=== PATIENT | female | born 1975 | race Caucasian/White ===

== ENCOUNTER 2022-08-22 11:26 | Outpatient (CLI) | payer BC, SELFPAY ==
--- NOTE | 2022-08-22 11:30 | CRLHL7_ITS ---
For Patients: As a result of the Century Cures Act, medical imaging exams and procedure reports are released immediately into your electronic medical record. You may view this report before your referring provider. If you have questions, please contact your health care provider. BILATERAL SCREENING MAMMOGRAM WITH COMPUTER-AIDED DETECTION TECHNIQUE: CC and MLO views were obtained. These mammographic images have been obtained using full-field digital technique. These mammographic images were interpreted with the benefit of computer-aided detection. COMPARISON FILM: 08/07/21, 05/25/20, 06/04/18. . FINDINGS: There are scattered areas of fibroglandular density IMPRESSION: There is no radiographic evidence for malignancy. ASSESSMENT: BI-RADS Category 1: Negative RECOMMENDATION: Routine screening mammogram in 1 year. A lay language report of this examination will be provided to the patient. Rojas Love M.D. Diagnostic Radiologist [email or web address] Transcribed: 2:07 pm DW/Dictated by: Rojas Love MD @ 08/23/2022 8:21:00 AM (Electronically Signed)
== END 2022-08-22 11:27 | disposition home or self-care (01) ==
PROVIDERS: PCP Family Medicine; Visit Provider Registered Nurse
DX: Z12.31 Encounter for screening mammogram for malignant neoplasm of breast (principal)
CPT/HCPCS: 77063; 77067

== ENCOUNTER 2022-09-02 11:00 | Outpatient (RCR) | payer OTHER, BC, SELFPAY | END 2023-04-03 23:59 | disposition home or self-care (01) | PROVIDERS: PCP Family Medicine; Visit Provider Family Medicine | DX: M77.01 Medial epicondylitis, right elbow (principal); Z51.89 Encounter for other specified aftercare | CPT/HCPCS: 97033; 97035; 97110; 97140; 97535; X5282 ==

== ENCOUNTER 2024-10-31 23:05 | Emergency (ER) | payer OTHER, SELFPAY ==
--- OUTSIDE RECORDS SUMMARY | 2024-10-31 23:08 | XMS_ITS | Clinical Summary ---
Author Organization [facility] Address [place], [place] [address] Care Team Providers Care Surgical Lead Name Role Phone Ching Reeder Primary Care Provider [phone] Allergies No known active allergies Medications ABDULLAHI 180 MG TABIndications:A llergic rhinitis, cause unspecified one PO daily PRN allergies 30 11 9 Active ferrous sulfate, 65 mg elemental, tabletIndication s:Iron deficiency anemia, unspecified iron deficiency anemia type Take 1 Tablet (325 mg) by mouth once daily with a meal. 90 Tablet 3 3 Active blood sugar diagnostic (OneTouch Verio test strips) stripIndications :Type 2 diabetes mellitus without complication, without long-term current use of insulin (HC) E11.9 NIDDM type II - Test 3 times/day, Reason: New diabetes 100 Each 5 3 Active lancets 33 gauge miscIndications: Type 2 diabetes mellitus without complication, without long-term current use of insulin (HC) As directed. Test 3 times daily 100 Each 3 3 Active cholecalciferol (VITAMIN D3) 50,000 unit capsuleIndicatio ns:Vitamin D deficiency Take 1 Capsule (50,000 units) by mouth once weekly. 8 Capsule 3 Active Active Problems Problem Noted Date Diagnosed Date Pap smear for cervical cancer screening 07/09/20 24 Overview (07/09/2024): 06/2024 NIL/HPV negative. Plan: Pap/HPV due 06/2029. Vitamin D deficiency 01/01/2023 Mixed hyperlipidemia 01/01/2023 Type 2 diabetes mellitus wit hout complication, without long-term current use of insulin 01/01/2023 Resolved Problems Problem Noted Date Diagnosed Date Resolved Date Positive PPD 02/21/2014 02/21/2014 Overview (02/21/2014): neg chest xray Waiting for PPD records Immunizations Name Administration Dates Next Due AMB Influenza, IIV4 PF (=>6 mos Flulaval,Fluzone Fluarix)(Flu Clinic Only) 06/06/2014 COVID-19 VACCINE SPIKEVAX (M ODERNA 50MCG/0.5ML) 12YO+ PFS 07/05/2024 COVID-19 vaccine (Moderna 100mcg/0.5mL) PF, MDV 11/13/2020 COVID-19 vaccine (Pfizer-Bio NTech 30mcg/0.3mL) 12YO+ BIVALENT PF, MDV 07/19/2022 COVID-19 vaccine (Pfizer-Bio NTech 30mcg/0.3mL) PF, MDV 12/19/2020,11/13/2020 Hep B (Hepatitis B (Adult) Recombinant Adjuvanted) 06/17/2024 INFLUENZA, IIV3 PF (AGE >= 6 MO) 07/05/2024 Influenza A (H1N1), Inactivated 08/31/2009 Influenza, IIV3 (Age >=3 years) 08/12/2007,08/02,09/13/2003 Influenza, IIV4 07/04/2021, 0,08/21/2018,2008 Influenza, IIV4 (=>6mos) MDV 07/16/2022 Td, Preservative Free (age > = 7 Years) 03/16/2018 Tdap 03/04/2018,08/12/2007 Family History Medical History Relation Name Comments Diabetes Brother 1 No Known Problems Brother 2 Hyperlipidemia Father Diabetes Maternal Grandfather Diabetes Maternal Grandmother Diabetes Mother Cancer-breast No Family History Relation Name Status Comments Brother 1 Alive Brother 2 Alive Father Maternal Grandfather Maternal Grandmother Mother Social History Tobacco Use Types Packs/Day Years Used Date Smoking Tobacco: Never Passive Smoke Exposure: Never Smokeless Tobacco: Never Tobacco Cessation:Counseling Given: Not Answered Alcohol Use Standard Drinks/Week Comments Yes 0 (1 standard drink = 0.6 oz pur e alcohol) rare PHQ-2 Answer Date Recorded PHQ-2 TOTAL SCORE 1 09/17/2022 Social Connections Answer Date Recorded Do you often feel lonely or isolated from those around you? 0 06/14/2024 Financial Resource Strain Answer Date R ecorded Difficulty of Paying Living Expenses 2 06/14/2024 Difficulty of Paying Living Expenses 1 06/14/2024 Food Insecurity Answer Date Recorded Do you worry your food will run out before you are able to buy more? 1 06/14/2024 Transportation Needs Answer Date Record ed Does lack of transportation keep you from medica l appointments? 1 06/14/2024 Does lack of transportation keep you from work, meetings or getting things that you need? 1 06/14/2024 Housing Stability Answer Date Recorded What is your housing situation today? 1 06/14/2024 Utilities Answer Date Recorded Do you have trouble paying f or utilities (for example, heat, electricity, water, phone)? 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 Not on file Not on file Not on file Obstetrics History Last Filed Vital Signs Vital Sign Reading Time Taken Comments Blood Pressure 118/72 07/05/2024 9:53 AM CDT Pulse 68 07/05/2024 9:53 AM CDT Temperature 37.4 C (99.4 F) 06/14/2024 10:35 AM CDT Respiratory Rate 16 07/05/2024 9:53 AM CDT Oxygen Saturation 99% 07/05/2024 9:53 AM CDT Inhaled Oxygen Concentration - - Weight 73.3 kg (161 lb 8 oz) 07/05/2024 9:53 AM CDT Height 153.1 cm (5' 0.28) 07/05/2024 9:53 AM CD T Body Mass Index 31.25 07/05/2024 9:53 AM CDT Plan of Treatment Health Maintenance Due Date Last Done Comments Pneumococcal series for age 6-49 (1 of 2 - PCV) 1979 Pneumococcal series for age 50+ (1 of 2 - PCV) 02/01/1992 Colonoscopy through age 75 2018 Zoster (shingles) series for age 50+ (1 of 2) 2023 Depression screening for age 12+ 09/17/2023 09/17/19 Hepatitis B series for Diabe greg (2 of 2 - CpG 2-dose series) 07/15/2024 06/17/2024 BMI (ht and wt on same day) for age 18+ 07/05/2025 07/05/2024, 12/06/2022, 09/25/2022, Additional history exists Mammogram for age 45-75 07/13/2025 07/13/20, 08/22/2022, 08/22/2022 (Completed outside of [facility]), Additional history exists Lipids for age 45-75 12/20/2027 12/19/2022, 09/17/19 Tetanus booster 03/16/2028 03/16/2018, 02/14, 08/12/2007 Pap test for age 21-65 07/05/2029 , 01/25/2019, 01/25/2019, Additional history exists Tdap Completed 03/04/2018, 08/12/2007 HIV for age 15-65 Completed 12/06/2022, 03/04/2018 Hepatitis C screening for ag e 18-79 Completed 12/06/2022, 03/04/2018 COVID-19 vaccine series Completed 07/05/20, 07/19/2022, 08/23/2021, Additional history exists Influenza for age 50-64 Completed 07/05/20, 07/16/2022, 07/04/2021, Additional history exists Procedures Procedure Name Priority Date/Time Associated Diagnosis Comments XR MAMMO BILAT SCREENING Routine 07/13/2024 1:44 PM CDT Visit for screening mammogram FIELD ACCOUNT MANAGER THIN PREP PAP AND HPV DNA - AGE 25 AND OVER ([facility]) Routine 07/05/2024 10:13 AM CDT Pap smear for cervical cancer screening LC LIPID PANEL AND CHOL/HDL RATIO Routine 12/19/2022 8:22 AM CDT Mixed hyperlipidemia LC HIV-1/O/2, 4TH GENERATION Routine 12/06/2022 3:44 PM CDT Screen for STD (sexually transmitted disease) LC HCV ANTIBODY RFX TO QUANT PCR Routine 12/06/2022 3:44 PM CDT Screen for STD (sexually transmitted disease) from Last 3 Months or Most Recently Relevant to Health Maintenance Results * XR MAMMO BILAT SCREENING (07/13/2024 1:44 PM CDT) Anatomical Region Laterality Modality BREASTS, Breast Left, Breast Right Bilateral Mammography Impressions 07/14/2024 3:45 PM CDT There is no radiographic evidence for malignancy. Recommend annual mammograms. MAMMOGRAM ASSESSMENT: ACR 1 Negative PATIENTS: You will also receive a letter with your examination results in an easy to read format. If you have questions about your results, please contact your referring provider. Narrative 07/14/2024 3:45 PM CDT For Patients: As a result of the Century Cures Act, medical imaging exams and procedure reports are released immediately into your electronic medical record. You may view this report before your referring provider. If you have questions, please contact your health care provider. XR MAMMO BILAT SCREENING [[id number]] CLINICAL HISTORY: This is an asymptomatic 49 y.o. patient. INDICATION FOR EXAM: Mammogram Screening. TECHNIQUE: CC & MLO views were obtained. This study was evaluated with the assistance of Computer-Aided Detection. COMPARISON FILM: Yes 08/22/22 Outside Facility 08/07/21 Outside Facility FINDINGS: There are scattered areas of fibroglandular density. There are no dominant masses, suspicious micro calcifications or areas of architectural distortion. us Ching DE LA TORRE MAMMO Final Res ult * FIELD ACCOUNT MANAGER THIN PREP PAP AND HPV DNA - AGE 25 AND OVER (Yhat) (07/05/2024 10:13 AM CDT) CLINICAL INFORMATION [facility] Comment:None given LMP [facility] Comment:NONE GIVEN PREV. PAP [facility] Comment:NONE GIVEN PREV. BX [facility] Comment:NONE GIVEN SOURCE FIELD ACCOUNT MANAGER [facility] Comment:None given STATEMENT OF ADEQUACY [facility] Comment: Satisfactory for evaluation. Endocervical/transformation zone component present. Age and/or menstrual status not provided INTERPRETATION/RESU LT [facility] Comment: Cytology Results: Negative for intraepithelial lesion or malignancy. COMMENT [facility] Comment: This Pap test has been evaluated with computer assisted technology. PRODUCT DESIGN MANAGER [facility] Comment: RRD, CT(ASCP) CT Screening location: [address] [address] THINPREP TIS PAP ALWAYS MESSAGE [facility] Comment: EXPLANATORY NOTE: The Pap is a screening test for cervical cancer. It is not a diagnostic test and is subject to false negative and false positive results. It is most reliable when a satisfactory sample, regularly obtained, is submitted with relevant clinical findings and history, and when the Pap result is evaluated along with historic and current clinical information. HPV HIGH RISK Not Detected NOT DETECTED [facility] Comment: Not Detected High Risk HPV types (16,18,31,33,35,39,45,51,52, 56,58,59,66,68) were not detected. Other HPV types which cause anogenital lesions may be present. The significance of the other types of HPV in malignant processes has not been established. Methodology: Real Time PCR Other (Other) 07/05/2024 10: 13 AM CDT 07/06/2024 8:[address] [facility] - 07/08/2024 7:31 PM CDT FASTING: UNKNOWN us Patricia DE LA TORRE PATHOLOGY/CYTOLOGY Fin al Result [address] [address], [facility] [address] [address] * (ABNORMAL) LC LIPID PANEL AND CHOL/HDL RATIO (12/19/2022 8:22 AM CDT) Cholesterol, Total 217(H) 100 - 199 mg/dL 12/21/2022 8:36 AM CDT [facility] Triglycerides 221(H) 0 - 149 mg/dL 12/21/2022 8:36 AM CDT [facility] HDL Cholesterol 36(L) >39 mg/dL 8:36 AM CDT [facility] VLDL Cholesterol Thomas 40 5 - 40 mg/dL 12/21/2022 8:36 AM CDT [facility] LDL Chol Calc (NIH) 141(H) 0 - 99 mg/dL 12/21/2022 8:36 AM CDT [facility] T. Chol/HDL Ratio 6.0(H) 0.0 - 4.4 ratio 12/21/2022 8:36 AM T [facility] Comment: T. Chol/HDL Ratio Men Women 1/2 Avg.Risk 3.4 3.3 Avg.Risk 5.0 4.4 2X Avg.Risk 9.6 7.1 3X Avg.Risk 23.4 11.0 Blood BLOOD SPECIMEN / Unknown Venipuncture / Unknown 12/19/2022 8:22 AM CDT 12/19/2022 8:23 AM CDT Narrative [facility] - 12/21/2022 8:36 AM CDT Performed at: 01 - [id number] [place], [place] [id number] Manager Of Learning: Landry Ayoub MD, Phone: [phone] us Ching DE LA TORRE SEND OUTS Final Res ult [facility] ([facility] [address] [place] [id number], * LC HCV ANTIBODY RFX TO QUANT PCR (12/06/2022 3:44 PM CDT) [facility] HCV Ab Non Reactive Non Reactive 12/10/2022 11:10 AM CDT [facility] Blood BLOOD SPECIMEN / Unknown Venipuncture / Unknown 12/06/2022 3:44 PM CDT 12/06/2022 3:44 PM CDT Narrative [facility] - 12/10/2022 11:10 AM CDT Performed at: - [address] [id number] Manager Of Learning: Landry Ayoub MD, Phone: [phone] us Dev Zimmer MD LABORATORY Final Result Performing Organization Address [facility] Co de Phone Number [facility] ([facility]) [address] [place] [address] * LC HIV-1/O/2, 4TH GENERATION (12/06/2022 3:44 PM CDT) [facility] HIV Scr 4th Gen Non Reactive Non Reactive 12/10/2022 12:08 PM CDT [facility] Comment: HIV Negative HIV-1/HIV-2 antibodies and HIV-1 p24 antigen were NOT detected. There is no laboratory evidence of HIV infection. Blood BLOOD SPECIMEN / Unknown Venipuncture / Unknown 12/06/2022 3:44 PM CDT 12/06/2022 3:[address] [facility] ([facility]) - 12/10/2022 12:08 PM CDT Performed at: [address] [id number] Manager Of Learning: Landry Ayoub MD, Phone: [phone] us Dev Zimmer MD LABORATORY Final Result Performing Organization Address [facility]/ZIP Co de Phone Number [facility] ([facility]) [address] [place] [address] from Last 3 Months or Most Recently Relevant to Health Maintenance Insurance [facility] [id number] [place] [address] [facility] Member Subscriber Plan / Payer (Ef fective 2021-Present) Name:Gina Echeverria Relation to Subscriber:Employee Name:[employer] [facility] Date of :2002 Address: [facility] [place] [address] Payer ID:Not on file Group ID:Not on file Type:Not on file Address: [phone] [place] [address] Care Teams Surgical Lead Relationship Specialty Start Date End Date Ching Reeder PA [address] [facility] [address] PCP - General Physician Rubber And Pounder 09/17/22
[2024-10-31 23:09] VITALS: BP 170/79; PULSE 67; RESP 20; TEMP 35.8; O2SAT 98; BMI 67.1
[2024-10-31 23:32] VITALS: BP 155/84; PULSE 67; RESP 20; TEMP 36.6; O2SAT 98
--- NOTE | 2024-10-31 23:32 | CRLHL7_ITS ---
For Patients: As a result of the Century Cures Act, medical imaging exams and procedure reports are released immediately into your electronic medical record. You may view this report before your referring provider. If you have questions, please contact your health care provider. INDICATION: Chest pain. TECHNIQUE: Chest 2 views. COMPARISON: 02/10/2014. FINDINGS: Cardiovascular and mediastinum: Heart size is normal. Unremarkable mediastinum. Lungs and pleural spaces: Slightly low lung volumes. No sign of infiltrate or mass. No sign of pleural effusion. No pneumothorax. Bones and soft tissues: No significant findings. IMPRESSION: No acute findings. Dictated by Rojas Ireland MD @ 11/01/2024 12:17:31 AM (Electronically Signed)
[2024-10-31] MEDS: 0.9 % SODIUM CHLORIDE 1000 ml 1,000 ML IV (23:41)
[2024-10-31] MEDS: ASPIRIN 81 MG TAB.CHEW 324 MG PO (23:41)
[2024-10-31 23:42] LABS: Basophils Absolute Auto 0.09 K/uL (0.00-0.30); Basophils Percent Auto 1.1 % (0.0-3.0); Eosinophils Absolute Auto 0.29 K/uL (0.00-0.50); Eosinophils Percent Auto 3.4 % (0.0-7.0); Hematocrit 37.5 % (33.0-51.0); Hemoglobin* 11.7 gm/dL (12.0-16.0); Immature Granulocytes Abs Auto 0.04 K/uL (0.00-0.30); Immature Granulocytes Pct Auto 0.5 %; Lymphocytes Absolute Auto 2.41 K/uL (0.90-2.90); Lymphocytes Percent Auto 28.7 % (20-44); Mean Corpuscular HGB Conc 31 gm/dL (32-36); Mean Corpuscular Hemoglobin 26 pg (26-34); Mean Corpuscular Volume 83 fL (80-100); Monocytes Percent Auto 11.3 % (0.0-11.0); Neutrophils Absolute Auto 4.63 K/uL (1.7-7.0); Platelet Count* 363 K/uL (140-440); RDW Coefficient of Variation % 14.1 % (11.5-15.5); Red Blood Count 4.53 m/uL (4.00-5.20); White Blood Count* 8.41 K/uL (4.50-11.00)
[2024-10-31 23:44] LABS: Slide Review Reflex No
--- NOTE | 2024-10-31 23:46 | ED.CHESTPAIN ---
HPI - Chest Pain General Date Seen: 10/31/24 Chief Complaint: Extremity Pain/Injury, Upper Stated Complaint: short of breath, back & L arm pain Time Seen by Provider: 10/31/24 23:22 Source: patient and family Mode of arrival: ambulatory Limitations: no limitations History of Present Illness HPI narrative: Patient is a very nice 49-year-old lady who presents here with left-sided chest pain that radiates to her left shoulder in into her left arm, it also radiates a little bit to her back, this came on after she came home from work at approximately 7:00 p.m. IFTTT. So thus is been going on for at least 3-4 hours she describes it almost like an altered sensation in her left arm, she does not have any weakness she denies any significant shortness of breath although she says she may have a little bit. She has no hemoptysis she did feel like she was going to pass out, and she denies that she has any history of heart problems, lung problems, history of pulmonary emboli or DVT. She is on no chronic medications and has no risk factors for heart disease. 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 complaint: chest pain and chest discomfort Onset (ago): hour(s) Timing of current episode: constant and still present Prior episodes: No Onset: during rest Pain location: substernal and left chest Pain radiation: left arm, left shoulder and left scapula Severity: mild Quality: tightness and heaviness Relieving factors: nothing Exacerbating factors: movement Treatment prior to arrival: none Risk Factors Coronary artery disease risk factors: none Thoracic aortic dissection risk factors: none Related Data On Oral Contraceptives: No Previous Rx's ?Medication ?Instructions ?Recorded albuterol sulfate 90 mcg/actuation 2 puff inhalation Q4-6H PRN 10/12/24 aerosol inhaler shortness of breath or wheezing #6.7 grams Allergies Allergy/AdvReac Type Severity Reaction Status Date / Time Penicillins Allergy Intermediate Rash Verified 10/12/24 17:16 Review of Systems Status of ROS Reports: 10 or more systems reviewed and unremarkable except as noted in History and below PFSH PFSH Social History Smoking Status: Never smoker Second hand tobacco smoke exposure: No How often do you have a drink containing alcohol: never AUDIT-C Alcohol total score: 0 Non-prescribed substance use: denies use Exam Narrative Exam Narrative: On examination in room 3 she is in no apparent distress she is pleasant alert her pupils equal round reactive to light there is no scleral icterus redness her TMs are normal oropharynx is normal there is no adenopathy anterior posterior chains, her chest is good air entry bilateral with no wheezing crackles noted no signs respiratory distress heart sounds no clicks murmurs or gallops her abdomen is soft there is no guarding no organomegaly she moves all extremities independently well with no edema swelling. Const Vital Signs, click to edit/add: Vital Signs - 24 hr 10/31/24 23:09 10/31/24 23:32 10/31/24 23:32 Temperature 96.5 F L 97.9 F Pulse Rate [Femoral] 67 67 Pulse Rate [Pulse Oximeter] 67 67 Respiratory Rate 20 20 Blood Pressure [Right Upper Arm] 170/79 H 155/84 H Pulse Oximetry 98 98 98 Oxygen Delivery Method Room Air Room Air Documenting provider has reviewed patient's vital signs: yes Course Vital Signs Vital signs: Initial Vital Signs Temperature 96.5 F L 10/31/24 23:09 Temperature Source Temporal Artery Scan 10/31/24 23:09 Pulse Rate 67 10/31/24 23:09 Respiratory Rate 20 10/31/24 23:09 Blood Pressure 170/79 H 10/31/24 23:09 Blood Pressure Mean 109 H 10/31/24 23:09 Pulse Oximetry 98 10/31/24 23:09 Oxygen Delivery Method Room Air 10/31/24 23:09 Vital Signs Temperature 96.5 F L 10/31/24 23:09 Pulse Rate 67 10/31/24 23:09 Respiratory Rate 20 10/31/24 23:09 Blood Pressure 170/79 H 10/31/24 23:09 Pulse Oximetry 98 10/31/24 23:09 Oxygen Delivery Method Room Air 10/31/24 23:09 Temperature 97.9 F 10/31/24 23:32 Pulse Rate 67 10/31/24 23:32 Respiratory Rate 20 10/31/24 23:32 Blood Pressure 155/84 H 10/31/24 23:32 Pulse Oximetry 98 10/31/24 23:32 Oxygen Delivery Method Room Air 10/31/24 23:32 Medications Administered Medications: Generic Name Dose Route Start Last Admin Trade Name Joselyn PRN Reason Stop Dose Admin Aspirin 324 mg 10/31/24 23:32 10/31/24 23:41 Aspirin 81 Mg Tab.Chew PO 10/31/24 23:33 324 mg ONCE ONE Administration Sodium Chloride 1,000 mls @ 1,000 mls/hr 10/31/24 23:45 11/01/24 00:27 0.9 % Sodium Chloride 1000 Ml IV 11/01/24 00:44 Infused .Q1H RADHA Infusion MDM - Chest Pain MDM Narrative Medical decision making narrative: During the evaluation of this patient I considered multiple differential diagnosis is. The life-threatening differential diagnosis include coronary disease/AL, pulmonary embolism, pneumothorax, pneumonia, and aortic dissection. Other differential diagnosis included but were not limited to pericarditis, myocarditis, chest wall pain, GERD, esophageal rupture, rib fracture contusion, pleurisy, as well as other etiologies. Heart score falls in the low risk category given her pain is been for 4 hours I think a single troponin is enough here. I discussed with her that there is lots of things because chest discomfort, and that we have ruled out some life-threatening ones at this point we will discharge her home. She was comfortable with this. Medical Records Data Attestation: I reviewed the patient's medical records. Lab Data Attestation: I reviewed the patient's lab results. Lab results narrative: I reviewed with her laboratory results which were negative, for any heart issue D-dimer, her blood glucose was elevated, she should follow-up for this. Labs: Lab Results 10/31/24 Range/Units 23:35 WBC 8.41 (4.50-11.00) K/uL RBC 4.53 (4.00-5.20) m/uL Hgb 11.7 L (12.0-16.0) gm/dL Hct 37.5 (33.0-51.0) % MCV 83 (80-100) fL MCH 26 (26-34) pg MCHC 31 L (32-36) gm/dL RDW Coeff of Kelly 14.1 (11.5-15.5) % Plt Count 363 (140-440) K/uL Neut % (Auto) 55.0 (42.0-72.0) % Lymph % (Auto) 28.7 (20-44) % [place] % (Auto) 11.3 H (0.0-11.0) % Eos % (Auto) 3.4 (0.0-7.0) % Baso % (Auto) 1.1 (0.0-3.0) % Neut # (Auto) 4.63 (1.7-7.0) K/uL Lymph # (Auto) 2.41 (0.90-2.90) K/uL [place] # (Auto) 1.00 H (0.00-0.90) K/UL Eos # (Auto) 0.29 (0.00-0.50) K/uL Baso # (Auto) 0.09 (0.00-0.30) K/uL Abs Immat Gran (auto) 0.04 (0.00-0.30) K/uL Imm/Tot Granulo (auto) 0.5 % INR 0.93 (0.91-1.10) APTT 28 (23-33) Seconds D-Dimer Quant (PE/DVT) 0.47 (0.00-0.50) ug/ml Sodium 138 (135-149) mmol/L Potassium 3.5 L (3.6-5.1) mmol/L Chloride 104 (96-114) mmol/L Carbon Dioxide 27 (20-32) mmol/L Anion Gap 7 (7-15) mEq/L BUN 14 (7-30) mg/dL Creatinine 0.6 (0.5-1.5) mg/dL Estimated Creat Clear 83.71 Estimated GFR 109 ml/min Glucose 203 H (60-115) mg/dL Calcium 8.8 (8.4-10.6) mg/dL Troponin I < 0.01 L (0.01-0.04) ng/mL C-Reactive Protein 0.6 (0.5-1.0) mg/dL NT-Pro-B Natriuret Pep < 20 pg/mL Imaging Data Chest x-ray: Attestation: I have reviewed the pertinent imaging results. My impression: Chest x-ray shows no acute findings Radiologist's impression: [address] [address] Diagnostic Imaging Report Patient: Gina Echeverria MR#: [id number] : 1975 Acct:[id number] Loc: ED Service Date: 10/31/[address]: Ordering Physician: Trip Cason M.D. Date of Service: 10/31/24 Procedure(s): XR chest 2V Accession Number(s): [id number] cc: Carmen Patel M.D.; Trip Cason M.D.~ For Patients: As a result of the Cures Act, medical imaging exams and procedure reports are released immediately into your electronic medical record. You may view this report before your referring provider. If you have questions, please contact your health care provider. INDICATION: Chest pain. TECHNIQUE: Chest 2 views. COMPARISON: 02/10/2014. FINDINGS: Cardiovascular and mediastinum: Heart size is normal. Unremarkable mediastinum. Lungs and pleural spaces: Slightly low lung volumes. No sign of infiltrate or mass. No sign of pleural effusion. No pneumothorax. Bones and soft tissues: No significant findings. IMPRESSION: No acute findings. Dictated by Rojas Ireland MD @ 11/01/2024 12:17:31 AM (Electronically S ECG Data Attestation: I personally reviewed and interpreted this ECG as follows: ECG interpretation date: 11/01/24 Prior ECG tracings: not available for review Interpretation: EKG shows normal sinus rhythm, the ventricular rate is 69 no acute changes. QRS QT and QTC are normal. Assessment: Normal EKG Discharge Plan Discharge Clinical Impression: Chest pain, Blood glucose elevated Patient Disposition: Home w/ Parent or Adult Condition: Stable Instructions: Chest Pain (DC), Diabetic Hyperglycemia (ED) Additional Instructions: Home, rest and no acute abn seen on the workup for the chest pain, specifically the heart enzyme test for heart attack, blood clot is negative. The chest xray is normal. The glucose test was high, and I suggest follow up with your primary care doc for this as this is high. Activity Level: Light activity Discharge Diet: Diabetic Prescriptions: No Action albuterol sulfate 90 mcg/actuation HFA aerosol inhaler 2 puff inhalation Q4-6H PRN (Reason: shortness of breath or wheezing) Qty: 6.7 0RF Follow Up/Referrals: Carmen Patel MD [Primary Care Provider] - Stand Alone Forms: [employer] Info Instructions
[2024-10-31 23:58] LABS: INR 0.93 (0.91-1.10)
[2024-10-31 23:59] LABS: Chloride* 104 mmol/L (96-114); Partial Thromboplastin Time* 28 Seconds (23-33); Potassium* 3.5 mmol/L (3.6-5.1); Sodium* 138 mmol/L (135-149)
[2024-11-01 00:02] LABS: Blood Urea Nitrogen* 14 mg/dL (7-30); Creatinine* 0.6 mg/dL (0.5-1.5); D Dimer Quantitative* 0.47 ug/ml (0.00-0.50); Est. Creatinine Clearance* 83.71; Estimated Glomerular Filt Rate 109 ml/min
[2024-11-01 00:03] LABS: Anion Gap 7 mEq/L (7-15); Calcium* 8.8 mg/dL (8.4-10.6); Carbon Dioxide* 27 mmol/L (20-32); Glucose* 203 mg/dL (60-115)
--- OUTSIDE RECORDS SUMMARY | 2024-11-01 00:03 | XMS_ITS | Clinical Summary ---
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 XR MAMMO BILAT SCREENING [[id number]] CLINICAL HISTORY: This is an asymptomatic 49 [...] LA TORRE MAMMO Final Res ult * CIVIL ATTORNEY THIN PREP PAP AND HPV DNA - AGE 25 AND OVER ([facility]) (07/05/2024 10:13 AM CDT) CLINICAL INFORMATION [facility] Comment:None given LMP [facility] Comment:NONE GIVEN PREV. PAP [facility] Comment:NONE GIVEN PREV. BX [facility] Comment:NONE GIVEN SOURCE CIVIL ATTORNEY [facility] Comment:None given STATEMENT OF ADEQUACY [facility] Comment: Satisfactory for evaluation. Endocervical/transformation zone component present. Age and/or menstrual status not provided INTERPRETATION/RESU LT [facility] Comment: Cytology Results: Negative for intraepithelial lesion or malignancy. COMMENT [facility] Comment: This Pap test has been evaluated with computer assisted technology. AUTOMOTIVE SALES PROFESSIONAL [facility] Comment: RRD, CT(ASCP) CT Screening location: [address] [address] THINPREP TIS PAP ALWAYS MESSAGE [facility] Comment: EXPLANATORY NOTE: The Pap is a [...] HPV HIGH RISK Not Detected NOT DETECTED [facility] Comment: Not Detected High Risk HPV types (16,18,31,33,35,39,45,51,52, 56,58,59,66,68) were not detected. Other HPV types which cause anogenital lesions may be present. The significance of the other types of HPV in malignant processes has not been established. Methodology: Real Time PCR Other (Other) 07/05/2024 10: 13 AM CDT 07/06/2024 8:54 AM CDT Narrative [facility] - 07/08/2024 7:31 PM CDT FASTING: UNKNOWN us Patricia DE LA TORRE PATHOLOGY/CYTOLOGY Fin al Result [address] [address], [facility] [employer] [address] * (ABNORMAL) LC LIPID PANEL AND CHOL/HDL RATIO (12/19/2022 8:22 AM CDT) Cholesterol, Total 217(H) 100 - 199 mg/dL 12/21/2022 8:36 AM CDT [facility] Triglycerides 221(H) 0 - 149 mg/dL 12/21/2022 8:36 AM CDT [facility] HDL Cholesterol 36(L) >39 mg/dL 8:36 AM CDT [facility] VLDL Cholesterol Thomas 40 5 - 40 mg/dL 12/21/2022 8:36 AM CDT [facility] LDL Chol Calc (NIH) 141(H) 0 - 99 mg/dL 12/21/2022 8:36 AM CDT [facility] T. Chol/HDL Ratio 6.0(H) 0.0 - 4.4 ratio 12/21/2022 8:36 AM T [facility] Comment: T. Chol/HDL Ratio Men Women 1/2 Avg.Risk 3.4 3.3 Avg.Risk 5.0 4.4 2X Avg.Risk 9.6 7.1 3X Avg.Risk 23.4 11.0 Blood BLOOD SPECIMEN / Unknown Venipuncture / Unknown 12/19/2022 8:22 AM CDT 12/19/2022 8:23 AM CDT Narrative [facility] - 12/21/2022 8:36 AM CDT Performed at: 01 - [id number] [place], [place] [id number] Snorkelling Instructor: Landry Ayoub MD, Phone: [phone] us Ching DE LA TORRE SEND OUTS Final Res ult [facility] ([facility]) [address] [place] [address], * LC HCV ANTIBODY RFX TO QUANT PCR (12/06/2022 3:44 PM CDT) [facility] HCV Ab Non Reactive Non Reactive 12/10/2022 11:10 AM CDT [facility] Blood BLOOD SPECIMEN / Unknown Venipuncture / Unknown 12/06/2022 3:44 PM CDT 12/06/2022 3:44 PM CDT Narrative [facility] - 12/10/2022 11:10 AM CDT Performed at: - [address] [id number] Snorkelling Instructor: Landry Aoyub MD, Phone: [phone] us Dev Zimmer MD LABORATORY Final Result Performing Organization Address [facility] Co de Phone Number [facility] ([facility]) [address] [place] [address] * LC HIV-1/O/2, 4TH GENERATION (12/06/2022 3:44 PM CDT) [facility] HIV Scr 4th Gen Non Reactive Non Reactive 12/10/2022 12:08 PM CDT [facility] Comment: HIV Negative HIV-1/HIV-2 antibodies and HIV-1 p24 antigen were NOT detected. There is no laboratory evidence of HIV infection. Blood BLOOD SPECIMEN / Unknown Venipuncture / Unknown 12/06/2022 3:44 PM CDT 12/06/2022 3:[address] [facility] ([facility]) - 12/10/2022 12:08 PM CDT Performed at: [address] [id number] Snorkelling Instructor: Landry Ayoub MD, Phone: [phone] us Dev Zimmer MD LABORATORY Final Result Performing Organization Address [facility]/ZIP Co de Phone Number [facility] ([facility]) [address] [place] [address] from Last 3 Months or Most Recently Relevant to Health Maintenance [facility] [id number] [place] [address] [facility] Member Subscriber Plan / Payer (Ef fective 2021-Present) Name:Gina Echeverria Relation to Subscriber:Employee Name:[employer] Date of :2002 Address: [facility] [place] [address] Payer ID:Not on file Group ID:Not on file Type:Not on file Address: [phone] [place] [address] Care Teams Middleware Engineer Relationship Specialty Start Date End Date Ching Reeder PA [address] [facility] [address] PCP - General Physician Nurse Leader 09/17/22
[2024-11-01 00:06] LABS: C Reactive Protein* 0.6 mg/dL (0.5-1.0)
[2024-11-01 00:13] LABS: NT Pro B Type NatriureticPept* < 20 pg/mL
[2024-11-01 00:23] LABS: Troponin I* < 0.01 ng/mL (0.01-0.04)
[2024-11-01 00:36] VITALS: BP 135/77; PULSE 69; RESP 20; TEMP 36.6; O2SAT 98
[2024-11-01 00:37] VITALS: BP 135/77; PULSE 69; RESP 20; TEMP 36.6
== END 2024-11-01 00:40 | disposition home or self-care (01) ==
PROVIDERS: Emergency Provider Family Medicine; PCP Family Medicine
DX: R07.9 Chest pain, unspecified (principal); E11.65 Type 2 diabetes mellitus with hyperglycemia
CPT/HCPCS: 36415; 71046; 80048; 83880; 84484; 85025; 85379; 85610; 85730; 86140; 93005; 94761; 99284; 99285; A9270; J7030